=== PATIENT | female | born 1950 | race African-American/Black ===

== ENCOUNTER 2019-03-22 09:52 | Emergency (ER) | payer MEDICARE, MEDICAID ==
[~2019-03-22] VITALS: Ht 162.6 cm; Wt 80.0 kg
[2019-03-22] MEDS ORDERED: ACETAMINOPHEN 325MG TABLET PO ONE (11:30)
[2019-03-22 12:07] VITALS: BP 160/88
== END 2019-03-22 12:08 | disposition home or self-care (01) ==
LOC: ER 09:52
DX: M54.41 Lumbago with sciatica, right side (principal); I25.2 Old myocardial infarction; Z98.890 Other specified postprocedural states
CPT/HCPCS: 99283

== ENCOUNTER 2019-05-26 09:15 | Emergency (ER) | payer MEDICARE, MEDICAID ==
[~2019-05-26] VITALS: Ht 167.6 cm; Wt 81.0 kg
[2019-05-26] MEDS ORDERED: METHOCARBAMOL 500MG TABLET PO ONE (10:30)
[2019-05-26] MEDS ORDERED: KETOROLAC 60MG/2ML VIAL IM ONE (10:30)
[2019-05-26 10:51] LABS: CLARITY URINE CLOUDY (CLEAR); COLOR URINE YELLOW (YELLOW); KETONES URINE NEGATIVE (NEGATIVE); LEUKOCYTE ESTERASE URINE 1+ (NEGATIVE); NITRITE URINE NEGATIVE (NEGATIVE); OCCULT BLOOD URINE 1+ (NEGATIVE); PH URINE 5.5 (4.5-8.0); PROTEIN URINE NEGATIVE (NEGATIVE); SPECIFIC GRAVITY URINE 1.014 (1.005-1.030); UROBILINOGEN URINE 0.2 E.U./dL (0.2-1.0)
[2019-05-26 13:19] VITALS: BP 160/69
== END 2019-05-26 14:01 | disposition home or self-care (01) ==
LOC: ER 09:15
DX: M54.5 Low back pain (principal); N39.0 Urinary tract infection, site not specified; I10 Essential (primary) hypertension; I25.2 Old myocardial infarction; Z98.890 Other specified postprocedural states
CPT/HCPCS: 72148; 81003; 87086; 96372; 99283; J1885

== ENCOUNTER 2020-10-16 14:29 | Emergency (ER) | payer MEDICARE, MEDICAID ==
[~2020-10-16] VITALS: Ht 162.6 cm; Wt 64.0 kg
[2020-10-16] MEDS ORDERED: ASPIRIN 81MG TABLET PO ONE (16:15)
[2020-10-16] MEDS ORDERED: NITROGLYCERIN 0.4MG TABLET SL SL PRN (16:15)
[2020-10-16 16:40] LABS: BASOPHILS % 1.6 % (0.0-2.0); EOSINOPHILS % 6.8 % (0.0-5.0); HEMATOCRIT. 41.3 % (36.0-48.0); HEMOGLOBIN. 13.9 g/dL (12.0-16.0); LYMPHOCYTES % 42.3 % (20.0-50.0); MEAN CORPUSCULAR HEMOGLOBIN 29.2 pg (28.0-32.0); MEAN CORPUSCULAR VOLUME 86.5 fL (81.0-99.0); MEAN PLATELET VOLUME 8.9 fl (7.4-10.4); NEUTROPHILS % 42.3 % (40.0-76.0); PLATELET 263 x1000/uL (130-400); RED BLOOD CELL COUNT 4.77 mill/uL (4.2-5.4); RED CELL DISTRIBUTION WIDTH 13.6 % (11.6-14.6)
[2020-10-16 16:48] LABS: CHLORIDE 106 mEq/L (98-107)
[2020-10-16 16:51] LABS: D-DIMER 0.47 mg/L FEU (<0.50); PARTIAL THROMBOPLASTIN TIME 28.6 sec (23.4-31.0)
[2020-10-16] MEDS ORDERED: POTASSIUM CHLORIDE 20MEQ TABLET SR PO ONE (17:15)
[2020-10-16] MEDS ORDERED: AZITHROMYCIN 500 MG in DEXT 5% WATER 250 ML IV ONE (20:15)
[2020-10-16] MEDS ORDERED: CEFTRIAXONE 1 G PREMIX 50 ML IV ONE (20:15)
[2020-10-16 21:40] VITALS: BP 146/63
== END 2020-10-16 20:35 | disposition short-term general hospital (02) ==
LOC: ER 14:29
DX: R07.89 Other chest pain (principal); R91.8 Other nonspecific abnormal finding of lung field; Z20.828 Contact with and (suspected) exposure to other viral communicable diseases; I10 Essential (primary) hypertension; I25.2 Old myocardial infarction; I25.10 Atherosclerotic heart disease of native coronary artery without angina pectoris; Z95.5 Presence of coronary angioplasty implant and graft; Z98.890 Other specified postprocedural states
CPT/HCPCS: 36415; 71045; 80053; 83605; 83880; 84484; 85025; 85379; 85610; 85730; 87040; 87635; 93005; 96365; 99285; C9803; J0456; J0696; J7060

== ENCOUNTER 2023-06-23 15:26 | Emergency (ER) | payer MEDICARE, MEDICAID ==
[~2023-06-23] VITALS: Ht 165.1 cm; Wt 77.0 kg
[2023-06-23 15:54] VITALS: BP 166/79; PULSE 78; RESP 20; TEMP 98.5; O2SAT 100
[2023-06-24] MEDS ORDERED: ACET-2708 MT (10:52)
== END 2023-06-23 17:00 | disposition left against medical advice (07) ==
LOC: ER 15:26
DX: M79.645 Pain in left finger(s) (principal); Z00.00 Encounter for general adult medical examination without abnormal findings
CPT/HCPCS: 99281

== ENCOUNTER 2023-06-24 08:28 | Emergency (ER) | payer MEDICARE, MEDICAID ==
[~2023-06-24] VITALS: Ht 167.6 cm; Wt 78.0 kg
[2023-06-24 08:36] VITALS: BP 165/93; PULSE 82; RESP 20; TEMP 98.3; O2SAT 98
[2023-06-24] MEDS ORDERED: ACET-2708 MT (10:52)
== END 2023-06-24 11:59 | disposition home or self-care (01) ==
LOC: ER 08:28
DX: M19.90 Unspecified osteoarthritis, unspecified site (principal)
CPT/HCPCS: 73140; 99283

== ENCOUNTER 2024-11-12 12:13 | Emergency (ER) | payer MEDICARE, MEDICAID ==
[~2024-11-12] VITALS: Ht 165.1 cm; Wt 78.0 kg
[~2024-11-12 12:13] MED LIST: ACET-2708 MT; METO-396 PO; NITR0.4T49 SL
[2024-11-12 12:30] VITALS: O2SAT 96
[2024-11-12] MEDS ORDERED: IBUP-2028 MT (13:32)
[2024-11-12] MEDS: IBUPROFEN 400MG TABLET PO ONE (13:45)
[2024-11-12 16:15] VITALS: BP 128/72; PULSE 88; RESP 18; TEMP 37.05852; O2SAT 99
== END 2024-11-12 16:17 | disposition home or self-care (01) ==
LOC: ER 12:13
DX: M25.579 Pain in unspecified ankle and joints of unspecified foot (principal); I10 Essential (primary) hypertension; I25.2 Old myocardial infarction; Z79.899 Other long term (current) drug therapy; Z98.890 Other specified postprocedural states
CPT/HCPCS: 73610; 99283